=== PATIENT | male | born 1970 | race Caucasian/White ===

== ENCOUNTER 2021-09-22 11:03 | Inpatient (IN) | payer OTHER, SELFPAY ==
[2021-09-22] VITALS (10 sets, daily range): BP systolic 107–139; BP diastolic 60–87; PULSE 57–90; RESP 15–20; TEMP 36.4–36.7; O2SAT 97–100; BMI 23.1; BMI 23.3
--- NOTE | 2021-09-22 11:08 | XR_ITS ---
PROCEDURE: XR CHEST 2V CLINICAL HISTORY: cough/congestion COMPARISON: No exams were available for comparison FINDINGS: The cardiomediastinal silhouette and pulmonary vascularity are within normal limits. Faint nodular opacity overlies the right lower lobe and may be due to a nipple shadow. No lobar consolidation or collapse. Degenerative changes thoracic spine IMPRESSION: No acute findings. Dictated by: Corby Muñoz MD 09/22/2021 14:41 Corby Muñoz MD in [place] 09/22/2021 14:41
--- NOTE | 2021-09-22 11:12 | HMH.EDGENADL ---
ED Disposition Clinical Impression: Pyelonephritis, Renal abscess, Renal cyst Disposition: Admitted as Observation Condition on Discharge: Fair - Critical Care Critical Care Time: No Attestation: On 09/22/21, the high probability of a clinically significant, sudden or life threatening deterioration of the following system(s) required my full and direct attention, intervention and personal management. The time I documented below is in addition to time spent performing reported procedures but includes the following listed in this critical care notation. Medical Decision Making - Marvin Inquiry Pt receiving controlled substance: No Vital Signs: 09/22/21 11:09 09/22/21 11:30 09/22/21 12:15 Temperature 97.6 F Temperature Source Oral Pulse Rate 62 60 Pulse Rate [Left Radial] 76 Respiratory Rate 16 20 Blood Pressure 124/79 132/81 Blood Pressure [Right Arm] 115/76 Blood Pressure Mean 90 95 Blood Pressure Mean [Right Arm] 89 Blood Pressure Source [Right Arm] Automatic Cuff Blood Pressure Position [Right Arm] Sitting 02 Sat by Pulse Oximetry 100 99 100 Oxygen Delivery Method Room Air 09/22/21 12:32 09/22/21 13:02 09/22/21 13:31 Temperature Temperature Source Pulse Rate 57 L 58 L 66 Pulse Rate [Left Radial] Respiratory Rate 20 18 20 Blood Pressure 107/60 L 139/81 136/79 Blood Pressure [Right Arm] Blood Pressure Mean 82 97 101 Blood Pressure Mean [Right Arm] Blood Pressure Source [Right Arm] Blood Pressure Position [Right Arm] 02 Sat by Pulse Oximetry 99 99 99 Oxygen Delivery Method 09/22/21 14:02 Temperature Temperature Source Pulse Rate 61 Pulse Rate [Left Radial] Respiratory Rate 18 Blood Pressure 123/81 Blood Pressure [Right Arm] Blood Pressure Mean 99 Blood Pressure Mean [Right Arm] Blood Pressure Source [Right Arm] Blood Pressure Position [Right Arm] 02 Sat by Pulse Oximetry 97 Oxygen Delivery Method - Lab Data Lab Results 09/22/21 11:04: WBC 12.6 H, RBC 5.74, Hgb 17.2, Hct 53.8 H, MCV 93.6, MCH 30.0, MCHC 32.0, RDW 13.3, Plt Count 246, MPV 7.8, Neut % (Auto) 87.7 H, Lymph % (Auto) 5.3 L, [place] % (Auto) 6.5, Eos % (Auto) 0.1, Baso % (Auto) 0.3, Neut # (Auto) 11.1 H, Lymph # (Auto) 0.7, [place] # (Auto) 0.8, Eos # (Auto) 0.0, Baso # (Auto) 0.0, Total Counted 100, Neutrophils % (Manual) 79 H, Band Neutrophils % 4.0, Lymphocytes % (Manual) 6 L, Monocytes % (Manual) 9, Eosinophils % (Manual) 1, Metamyelocytes % 1.0, Platelet Estimate Normal, RBC Morphology Normal 09/22/21 11:04: Sodium 135 L, Potassium 4.1, Chloride 93 L, Carbon Dioxide 33 H, Anion Gap 13.1, BUN 11, Creatinine 0.90, Estimated Creat Clear 98, Estimated GFR 89, Est GFR ( Amer) 108, Glucose 155 H, Calcium 9.0, Total Bilirubin 0.7, AST 42, ALT 36, Alkaline Phosphatase 98, Total Protein 7.5, Albumin 4.1, Globulin 3.4 H, Albumin/Globulin Ratio 1.2 09/22/21 11:04: SARS-CoV-2 (PCR) Not detected, Influenza A Untype (PCR) Not detected, Influenza Type B (PCR) Not detected 09/22/21 11:04: Lipase 21 L 09/22/21 12:32: Urine Color Yellow, Urine Appearance Cloudy, Urine pH 6.5, Ur Specific [place] 1.010, Urine Protein 2+, Urine Glucose (UA) Negative, Urine Ketones Trace, Urine Blood 2+, Urine Nitrate Positive, Urine Bilirubin Negative, Urine Urobilinogen 1.0, Ur Leukocyte Esterase 2+ A, Urine RBC 20-50, Urine WBC 10-20, Ur Squamous Epith Cells None, Urine Bacteria 2+ 09/22/21 13:09: Lactate 1.1 Result diagrams: 09/22/21 11:04 09/22/21 11:04 Orders (Tests/Meds): ED MEDICATIONS Generic Name Dose Route Start Last Admin Trade Name Freq PRN Reason Stop Dose Admin Levofloxacin/Dextrose 750 mg in 150 mls @ 100 mls/hr 09/22/21 13:00 09/22/21 12:50 Levofloxacin 750mg/150ml Premix IV 10/06/21 12:59 100 mls/hr Q24H SCOTT Administration Discontinued Medications Generic Name Dose Route Start Last Admin Trade Name Freq PRN Reason Stop Dose Admin Sodium Chloride 1,000 mls @ 999 mls/h
[2021-09-22 11:14] LABS: Coronavirus 19, PCR Not Detected (NotDetected); Influenza A, PCR Not Detected (NotDetected); Influenza B, PCR Not Detected (NotDetected)
[2021-09-22 11:16] LABS: Basophils % 0.3 % (0.1-2.0); Chloride 93 mmol/L (98-107); Eosinophils % 0.1 % (0.1-12.0); Hematocrit 53.8 % (42.0-52.0); Hemoglobin 17.2 g/dL (14.1-18.0); Lymphocytes # 0.7 K/mm3 (0.7-4.5); Lymphocytes % 5.3 % (10-50); Mean Corpuscular Volume 93.6 fl (80-94); Mean Platelet Volume 7.8 fl (7.4-10.4); Monocytes # 0.8 K/mm3 (0.1-1.0); Monocytes % 6.5 % (1.7-9.3); Neutrophils # 11.1 K/mm3 (1.8-7.8); Neutrophils % 87.7 % (37.0-80.0); Platelet Count 246 K/mm3 (142-424); Red Blood Count 5.74 M/mm3 (4.60-6.20); Red Cell Distribution Width 13.3 % (11.5-17.5); White Blood Count 12.6 K/mm3 (4.8-10.8)
[2021-09-22 11:17] LABS: Potassium 4.1 mmoL/L (3.5-5.1); Sodium 135 mmol/L (136-145)
--- NOTE | 2021-09-22 11:17 | CT_ITS ---
PROCEDURE: CT ABDOMEN PELVIS W CON CLINICAL INDICATION: abdo pain COMPARISON: No exams were available for comparison TECHNIQUE: IV Contrast: 75ML Isovue 370 Oral Contrast None Axial images obtained with sagittal and coronal reformats. All CT scans at the facility use one or more dose reduction, viz: automated exposure control, ma/kV adjustment per patient size (including targeted exams where dose is matched to indication, i.e. head), or iterative reconstruction technique. FINDINGS: LOWER THORAX: Faint nodular opacity in the lingula 4 mm. Calcified granuloma right lung base posteriorly ABDOMEN & PELVIS: Small hiatal hernia. The liver, spleen, adrenal glands, and pancreas have an unremarkable appearance. No radiopaque gallstones. No renal or ureteral calculi. There are areas of decreased parenchymal enhancement involving both kidneys bilaterally. These are peripheral in nature suggesting bilateral pyelonephritis. Along the upper pole of the left kidney there is a complex hypodense lesion measuring 1.9 cm. The density centrally is greater than water measuring approximately 20 Hounsfield units. Along the peripheral aspect of this lesion there is suggestion of small capsular component. Renal abscess is a consideration. Complex cyst would also be considered. There is some minimal stranding of the perinephric renal fat on both sides. In the lower pole of the right kidney there is a 3 cm cyst. No intestinal obstruction or free air. There are few scattered small retroperitoneal lymph nodes. No evidence of appendicitis or diverticulitis. There is concentric thickening of the urinary bladder wall. No pelvic fluid collections. No acute bony findings. IMPRESSION: Findings are suspicious for bilateral pyelonephritis with left upper pole renal abscess. The complex lesion in the upper pole of the left kidney could also represent complex cyst or even a neoplastic process. Follow-up suggested Dictated by: Corby Muñoz MD 09/22/2021 12:31 Corby Muñoz MD in [place] 09/22/2021 12:31
[2021-09-22 11:19] LABS: Alanine Aminotransferase 36 U/L (12-78); Aspartate Amino Transferase 42 U/L (17-59); Blood Urea Nitrogen 11 mg/dl (9-20); Creatinine Clearance Estimated 98 mL/min (50-200); Estimated Glomerular Filt Rate 89 ml/min (>60); GFR (African American) 108 ML/MIN (>60)
[2021-09-22 11:20] LABS: Albumin Level 4.1 g/dl (3.5-5.0); Albumin/Globulin Ratio 1.2 (1.1-1.8); Alkaline Phosphatase 98 U/L (38-126); Anion Gap 13.1 mEq/L (5-15); Bilirubin,Total 0.7 mg/dl (0.2-1.3); Carbon Dioxide 33 mmol/L (22.0-30.0); Globulin 3.4 g/dL (1.3-3.2); Glucose 155 mg/dl (74-100); MANUAL DIFFERENTIAL MANUAL DIFFERENTIAL (MANUAL DIFF); Total Protein,Serum 7.5 g/dl (6.3-8.2)
[2021-09-22 11:44] LABS: Eosinophils % 1 % (0-3); Lymphocytes % 6 % (10-50); Monocytes % 9 % (2-9); Neutrophils % 79 % (42-76); Platelet Estimate Normal; RBC Morphology Normal; Total Cells Counted 100
[2021-09-22 12:00] LABS: Lipase 21 U/L (23-300)
[2021-09-22 12:36] LABS: Microscopic, Urine URINE MICROSCOPIC (MICROSCOPIC)
[2021-09-22 12:40] LABS: Appearance,Urine CLOUDY (Clear); Bilirubin,Urine Negative (Negative); Blood, Urine 2+ (Negative); Color,Urine YELLOW (Yellow); Glucose,Urine (UA) Negative (Negative); Ketones,Urine TRACE (Negative); Leukocyte Esterase,Urine 2+ (Negative); Nitrate,Urine POSITIVE (Negative); PH,Urine 6.5 (5.0-8.5); Protein,Urine 2+ (Negative)
[2021-09-22 12:56] LABS: Bacteria,Urine 2+ /lpf; RBC,Urine 20-50 #/hpf (0-3)
[2021-09-22 13:38] LABS: Lactic Acid 1.1 mmol/L (0.7-2.1)
--- NOTE | 2021-09-22 14:54 | PC.NURSE ---
Dr Schulz speaking with Dr Rondon
--- NOTE | 2021-09-22 14:55 | PC.NURSE ---
SERGEY MCCLURE speaking with Dr. Rondon
--- NOTE | 2021-09-22 14:56 | US_ITS ---
PROCEDURE: US KIDNEY CLINICAL INDICATION: possible left renal abscess COMPARISON: CT CT ABDOMEN PELVIS W CON from 09/22/2021 FINDINGS: The right kidney is [id number]. 2.7 cm cyst along the lower pole of the right kidney. The left kidney is [id number]. Comparison is made to the recent CT scan. In the upper pole there is a 2 x 1.8 cm area of heterogeneous echogenicity. This corresponds to the CT abnormality. No perinephric fluid apparent. No hydronephrosis. IMPRESSION: Heterogeneous echogenicity in the upper pole of the left kidney difficult to visualize suggesting a small renal abscess versus lobar nephronia. Suggest convalescent follow-up enhanced CT scan once this has been treated to assure resolution. Dictated by: Corby Muñoz MD 09/22/2021 15:37 Corby Muñoz MD in [place] 09/22/2021 15:37
--- NOTE | 2021-09-22 16:44 | PC.NURSE ---
called report to pablo dugan
--- NOTE | 2021-09-22 20:52 | P.CONPHA_ITS ---
[facility] Pharmacy VTE Monitoring - Patient Demographics Admission date: 09/22/21 Report Date: 09/22/21 Time: 20:52 Allergies/Adverse Reactions: Patient Allergies hydrocodone [HYDROCODONE] Allergy (Intermediate, Verified 09/22/21 11:25) I-ITCHING Penicillins [PENICILLINS] Allergy (Intermediate, Verified 09/22/21 11:25) I-HIVES Sulfa (Sulfonamide Antibiotics) [SULFA (SULFONAMIDE ANTIBIOTICS)] Allergy (Mild, Verified 09/22/21 11:25) NA-NAUSEA/VOMITING Height: 1.75 m Weight: 71.696 kg Patient Problems: Current Active Problems Pyelonephritis (Acute) Renal abscess (Acute) Renal cyst (Acute) - VTE Risk Labs: VTE Related Lab Results Hgb 17.2 g/dL (14.1-18.0) 09/22/21 11:04 Hct 53.8 % (42.0-52.0) H 09/22/21 11:04 Plt Count 246 K/mm3 (142-424) 09/22/21 11:04 BUN 11 mg/dl (9-20) 09/22/21 11:04 Creatinine 0.90 mg/dl (0.66-1.25) 09/22/21 11:04 Estimated Creat Clear 98 mL/min (50-200) 09/22/21 11:04 Clinical Trial Participant: No - Prophylaxis VTE Prophylaxis Ordered?: Yes Types of VTE Prophylaxis: TEDS Knee High
--- NOTE | 2021-09-23 03:49 | PC.NURSE ---
A&OX4. TOLERATING RA WELL. PT HAS HAD NO C/O THUS FAR. SLEEPING MAJORITY OF SHIFT. INDEPENDENT IN ROOM. VSS WILL CONTINUE TO MONITOR.
[2021-09-23 04:00] VITALS: BP 107/67; PULSE 79; RESP 18; TEMP 36.8; O2SAT 96
[2021-09-23 04:43] VITALS: BMI 22.9
[2021-09-23 07:57] VITALS: BP 105/75; PULSE 77; RESP 18; TEMP 36.8; O2SAT 97
--- NOTE | 2021-09-23 08:57 | HMH.HP ---
*Admission Date: 09/22/21 *Chief complaint: not feeling well *History of present illness: this patient presented to the ed- in by ambulance. States he has been sick since Monday. He has periumbilical abdominal pain that feels like somebody is twisting my guts , initially did not have a bowel movement until Monday, then took a laxative. Since then he has had watery diarrhea, 2 small episodes today without blood. Feels hot and cold, but no documented fever. Minimal cough. Says he has been drinking a lot, hydrating himself, and has increased urinary output, but urine is dark. Low back pain. No known exposures to any illnesses including COVID-19. He is not vaccinated against COVID-19. He is a smoker. He drinks 4 beers a day. No chronic medical conditions. No history of IV drug abuse. States he has a history of urinary tract infection 7 or 8 years ago treated with outpatient antibiotics.pt was found to have pyelo on ct with abd urine and was admitted for ivf and abx at this time [facility] History I have reviewed the patient's past medical history: Yes *Have you ever received a pneumonia vaccine?: No *Have you received a flu vaccine this season?: No - *Social History Smoking Status: Current every day smoker # Packs/Day (cigarettes): 1 Alcohol Intake: current Alcohol Intake Frequency:: 3 or more drinks per day Last Used Substance: unknown *Occupational Status:: employed *Travel in the last 8 weeks: None Family Hx:: No significant family history Review of Systems - Review of Systems Review of systems:: pertinent systems reviewed and negative unless documented below - Constitutional Reports fatigue, Denies fever(s) - Eyes Denies change in vision - ENT Denies sore throat - *Cardiovascular Denies chest pain at rest - *Respiratory Denies cough - *Gastrointestinal Reports abdominal pain, Reports nausea - *Genitourinary Denies blood in urine - *Musculoskeletal Denies joint pain - Integumentary/Breasts Denies rash - *Neurologic Denies dizziness, Denies seizure-like activity - Psychiatric Denies anxiety Meds Home Medications Medication Instructions Recorded Confirmed Type No Known Home Medications 09/22/21 09/22/21 History Allergies Allergy/AdvReac Type Severity Reaction Status Date / Time hydrocodone [HYDROCODONE] Allergy Intermediate I-ITCHING Verified 09/22/21 11:25 Penicillins [PENICILLINS] Allergy Intermediate I-HIVES Verified 09/22/21 11:25 Sulfa (Sulfonamide Allergy Mild NA-NAUSEA/V Verified 09/22/21 11:25 Antibiotics) OMITING [SULFA (SULFONAMIDE ANTIBIOTICS)] Exam Vital signs and Labs for Last 24 Hours: Temp Pulse Resp BP Pulse Ox 98.2 F 77 18 105/75 L 97 09/23/21 07:57 09/23/21 07:57 09/23/21 07:57 09/23/21 07:57 09/23/21 07:57 Laboratory Results - last 24 hr 09/22/21 11:04: WBC 12.6 H, RBC 5.74, Hgb 17.2, Hct 53.8 H, MCV 93.6, MCH 30.0, MCHC 32.0, RDW 13.3, Plt Count 246, MPV 7.8, Neut % (Auto) 87.7 H, Lymph % (Auto) 5.3 L, [place] % (Auto) 6.5, Eos % (Auto) 0.1, Baso % (Auto) 0.3, Neut # (Auto) 11.1 H, Lymph # (Auto) 0.7, [place] # (Auto) 0.8, Eos # (Auto) 0.0, Baso # (Auto) 0.0, Total Counted 100, Neutrophils % (Manual) 79 H, Band Neutrophils % 4.0, Lymphocytes % (Manual) 6 L, Monocytes % (Manual) 9, Eosinophils % (Manual) 1, Metamyelocytes % 1.0, Platelet Estimate Normal, RBC Morphology Normal 09/22/21 11:04: Sodium 135 L, Potassium 4.1, Chloride 93 L, Carbon Dioxide 33 H, Anion Gap 13.1, BUN 11, Creatinine 0.90, Estimated Creat Clear 98, Estimated GFR 89, Est GFR ( Amer) 108, Glucose 155 H, Calcium 9.0, Total Bilirubin 0.7, AST 42, ALT 36, Alkaline Phosphatase 98, Total Protein 7.5, Albumin 4.1, Globulin 3.4 H, Albumin/Globulin Ratio 1.2 09/22/21 11:04: SARS-CoV-2 (PCR) Not detected, Influenza A Untype (PCR) Not detected, Influenza Type B (PCR) Not detected 09/22/21 11:04: Lipase 21 L 09/22/21 12:32: Urine Color Yellow, Urine Appearance Cloudy, Ur
[2021-09-23 15:15] VITALS: BP 123/76; PULSE 81; RESP 17; TEMP 36.7; O2SAT 99
--- NOTE | 2021-09-23 15:50 | PC.NURSE ---
No acute changes. VSS. Did send stool sample to lab. Stool soft and x 1.
[2021-09-23 16:28] LABS: Adenovirus F 40/41, stool Not Detected (NotDetected); Astrovirus Not Detected (NotDetected); Campylobacter Not Detected (NotDetected); Clostridium Difficile A/B, PCR Not Detected (NotDetected); Cryptosporidium Not Detected (NotDetected); Cyclospora Cayetanesis Not Detected (NotDetected); Entamoeba histolytica Not Detected (NotDetected); Enteroaggregative E coli Not Detected (NotDetected); Enteropathogenic E coli Not Detected (NotDetected); Enterotoxigenic E coli Not Detected (NotDetected); Giardia lamblia Not Detected (NotDetected); Norovirus Not Detected (NotDetected); Plesimonas Shigalloides, PCR Not Detected (NotDetected); Rotavirus A Not Detected (NotDetected); Salmonella, PCR Not Detected (NotDetected); Sapovirus Not Detected (NotDetected); Shiga-like toxin E coli Not Detected (NotDetected); Shigella Enterovasive E coli Not Detected (NotDetected); Vibrio Cholerae Not Detected (NotDetected); Vibrio, PCR Not Detected (NotDetected); Yersinia Entercolitica, PCR Not Detected (NotDetected)
[2021-09-23 20:00] VITALS: BP 128/85; PULSE 79; RESP 20; TEMP 37.2; O2SAT 98
--- NOTE | 2021-09-24 03:30 | PC.NURSE ---
A&OX4. TOLERATING RA WELL. PT HAS SLEPT MAJORITY OF SHIFT. HAS HAD NO C/O. VSS WILL CONTINUE TO MONITOR.
[2021-09-24 04:00] VITALS: BP 112/63; PULSE 68; RESP 18; TEMP 37.2; O2SAT 100
[2021-09-24 08:00] VITALS: BP 101/54; PULSE 74; RESP 16; TEMP 37.1; O2SAT 98
[2021-09-24 08:33] LABS: Basophils % 0.5 % (0.1-2.0); Eosinophils # 0.1 K/mm3 (0.0-0.4); Eosinophils % 1.8 % (0.1-12.0); Hematocrit 42.8 % (42.0-52.0); Hemoglobin 13.9 g/dL (14.1-18.0); Lymphocytes % 12.7 % (10-50); Mean Corpuscular HGB Conc 32.4 g/dL (31.8-35.4); Mean Corpuscular Hemoglobin 29.5 pg (27.0-31.2); Mean Platelet Volume 7.5 fl (7.4-10.4); Monocytes # 0.6 K/mm3 (0.1-1.0); Monocytes % 8.1 % (1.7-9.3); Platelet Count 282 K/mm3 (142-424); Red Cell Distribution Width 13.7 % (11.5-17.5); White Blood Count 7.8 K/mm3 (4.8-10.8)
[2021-09-24 08:44] LABS: Chloride 105 mmol/L (98-107); Potassium 3.8 mmoL/L (3.5-5.1); Sodium 138 mmol/L (136-145)
[2021-09-24 08:47] LABS: Anion Gap 11.8 mEq/L (5-15); Blood Urea Nitrogen 8 mg/dl (9-20); Calcium 8.5 mg/dl (8.4-10.2); Carbon Dioxide 25 mmol/L (22.0-30.0); Creatinine Clearance Estimated 97 mL/min (50-200); Estimated Glomerular Filt Rate 89 ml/min (>60); GFR (African American) 108 ML/MIN (>60); Glucose 158 mg/dl (74-100)
--- NOTE | 2021-09-24 09:00 | HMH.DCSUM ---
General - General Admission date:: 09/22/21 Discharge date: 09/24/21 HPI HPI: this patient presented to the ed- in by ambulance. States he has been sick since Monday. He has periumbilical abdominal pain that feels like somebody is twisting my guts , initially did not have a bowel movement until Monday, then took a laxative. Since then he has had watery diarrhea, 2 small episodes today without blood. Feels hot and cold, but no documented fever. Minimal cough. Says he has been drinking a lot, hydrating himself, and has increased urinary output, but urine is dark. Low back pain. No known exposures to any illnesses including COVID-19. He is not vaccinated against COVID-19. He is a smoker. He drinks 4 beers a day. No chronic medical conditions. No history of IV drug abuse. States he has a history of urinary tract infection 7 or 8 years ago treated with outpatient antibiotics.pt was found to have pyelo on ct with abd urine and was admitted for ivf and abx at this time Hospital Course Hospital Course: pt has did well with ivf and abx with gram neg organism in urine - pending final culture - pt has stable labs and tolerating diet and activity and will d/c today on levofloxin - and follow urine culture - Objective Vital signs: Temp Pulse Resp BP Pulse Ox 98.9 F 68 18 112/63 100 09/24/21 04:00 09/24/21 04:00 09/24/21 04:00 09/24/21 04:00 09/24/21 04:00 no acute distress - *Routine HEENT Exam Head: Present: normocephalic Eye: Present: EOMI, PERRL ENT: Present: mucous membranes moist - *Routine Neck Exam Present: supple - *Routine Respiratory Exam Present: CTA bilaterally - *Routine Cardiovascular Exam Present: RRR. Absent: murmur - *Routine Abdominal Exam Present: soft - *Routine Extremities Exam Absent: calf tenderness - *Routine Neurological Exam Present: alert, CN II-XII intact - Routine Psychiatric Exam Present: normal affect Results Labs on day of discharge: Labs from last 24 hours 09/24/21 09/24/21 09/23/21 08:22 08:22 15:30 WBC 7.8 D RBC 4.70 Hgb 13.9 L Hct 42.8 MCV 91.0 MCH 29.5 MCHC 32.4 RDW 13.7 Plt Count 282 MPV 7.5 Neut % (Auto) 77.0 Lymph % (Auto) 12.7 [place] % (Auto) 8.1 Eos % (Auto) 1.8 Baso % (Auto) 0.5 Neut # (Auto) 6.0 Lymph # (Auto) 1.0 [place] # (Auto) 0.6 Eos # (Auto) 0.1 Baso # (Auto) 0.0 Sodium 138 Potassium 3.8 Chloride 105 Carbon Dioxide 25 Anion Gap 11.8 BUN 8 L D Creatinine 0.90 Estimated Creat Clear 97 Estimated GFR 89 Est GFR ( Amer) 108 Glucose 158 H Calcium 8.5 Urine Color Urine Appearance Urine pH Ur Specific [place] Urine Protein Urine Glucose (UA) Urine Ketones Urine Blood Urine Nitrate Urine Bilirubin Urine Urobilinogen Ur Leukocyte Esterase Urine RBC Urine WBC Ur Squamous Epith Cells Urine Bacteria Stl Aeromonas (PCR) Not detected Stl C. cayetanensis PCR Not detected Stool Rotavirus (PCR) Not detected Stl Adenov F 40/41 PCR Not detected Stool Astrovirus (PCR) Not detected Stool Campylobacter PCR Not detected Stl C.difficile Tox PCR Not detected Stool Cryptosporidium PCR Not detected Stl E.coli Shiga Tox PCR Not detected Stool E coli O157 PCR Not detected Stl Enterotoxigenic E PCR Not detected Stool EPEC (PCR) Not detected Stool EAEC (PCR) Not detected Stl E. histolytica PCR Not detected Stool Giardia Lamblia PCR Not detected Stool Salmonella PCR Not detected Stool Sapovirus (PCR) Not detected Stl P. shigelloides PCR Not detected Stl Shigella/EIEC PCR Not detected St Y.enterocolitica PCR Not detected Stool Vibrio (PCR) Not detected Stl Vibrio cholerae PCR Not detected Stl Norovirus GI/GII PCR Not detected 09/22/21 12:32 WBC RBC Hgb Hct MCV MCH MCHC RDW Plt Co
[2021-09-24 23:22] LABS: Neisseria gonorrhoeae, NAA Negative (Negative)
== END 2021-09-24 13:21 | disposition home or self-care (01) | DRG 690 ==
LOC: ER 14:57 → 2ND 09-23 07:28
PROVIDERS: Admitting Provider Emergency Medicine; Emergency Provider Emergency Medicine; PCP Emergency Medicine; Visit Provider Emergency Medicine
DX: N10 Acute pyelonephritis (principal); N15.1 Renal and perinephric abscess; Z20.822 Contact with and (suspected) exposure to COVID-19; F17.210 Nicotine dependence, cigarettes, uncomplicated; B96.20 Unspecified Escherichia coli [E. coli] as the cause of diseases classified elsewhere; N28.1 Cyst of kidney, acquired
CPT/HCPCS: 36415; 71046; 74177; 76770; 80048; 80053; 81001; 83605; 83690; 85007; 85025; 87040; 87077; 87086; 87088; 87186; 87491; 87506; 87591; 96365; 96367; 96375; 99284; C9803; J1956; J2405; Q9967; U0003; U0005

== ENCOUNTER 2023-05-04 08:38 | Emergency (ER) | payer OTHER, SELFPAY ==
[2023-05-04 08:40] VITALS: BP 118/85; PULSE 86; RESP 16; TEMP 36.6; O2SAT 100; BMI 23.1
[2023-05-04 09:16] VITALS: BP 114/80; PULSE 85; O2SAT 99
--- NOTE | 2023-05-04 09:17 | PC.NURSE ---
Rounded on patient; no needs at this time, friend at BS. Call light within reach
--- NOTE | 2023-05-04 09:25 | PC.NURSE ---
SERGEY MCCLURE at
--- NOTE | 2023-05-04 09:35 | XR_ITS ---
FINAL REPORT CLINICAL HISTORY: concern for infection FINDINGS: Left knee Three views were obtained. There is no acute fracture or dislocation. The joint spaces appear normal. There is prepatellar soft tissue swelling. IMPRESSION: Prepatellar soft tissue swelling. Reviewed, Interpreted and Dictated by Ari Mukherjee III, MD Transcribed by Rebekah Mcgarry Authenticated and [facility]
--- NOTE | 2023-05-04 09:37 | HMH.EDGENADL ---
Discharge Plan Disposition Patient Disposition: Home, Self-Care Prescriptions Prescriptions: No Action levofloxacin 500 MG tablet 500 mg PO DAILY Qty: 7 0RF Referrals Follow up/Referrals: Bernardino Rondon MD [Primary Care Provider] - See instructions Activity Restrictions/Add. Instructions Additional Instructions/Restrictions: Admission to the hospital was recommended and you declined wishing to come back this evening after you tended some issues at home. Please return soon as possible and be aware that if he did not return for admission for IV antibiotics that this could get significantly worse and could be limb or life-threatening. Clinical Impressions Clinical Impression: Cellulitis of left leg Discharge ED Provider: Shannan Casas General Adult HPI General Chief complaint: Extremity Injury, Lower Stated complaint: [email or web address]@home 05/01 LT knee pain Time Seen by Provider: 05/04/23 09:23 Mode of Arrival: Ambulatory Source of Information: Patient Limitations: No Limitations Description of Symptoms (Recalled from ER Triage Doc. by RN): Presents to ED with complaints of LLE pain that started after he fell on May 01. Patient reports warmth and reddness to the area with noteable streaking up posterior thigh. Denies blood thinner. Denies fever. Further reports inable to stand on leg without severe pain. History of Present Illness HPI narrative: Patient is a 52-year-old male presenting today with left lower extremity pain and erythema. States that he fell a few days ago but no significant injury at that time no soft tissue or skin injury that he is aware of but since the fall he is developed progressive worsening erythema over the dorsal and medial aspect of the left lower extremity extending up beyond past the knee into the medial aspect of his left thigh. No fevers or chills that he is aware of. His pain is extremely worsened when he has extension and is most comfortable in a fixed flexed position. Related Data Previous Rx's Medication Instructions Recorded levofloxacin 500 mg tablet 500 mg PO DAILY Infection #7 tabs 09/24/21 Allergies Allergy/AdvReac Type Severity Reaction Status Date / Time hydrocodone [HYDROCODONE] Allergy Intermediate I-ITCHING Verified 09/22/21 11:25 Penicillins [PENICILLINS] Allergy Intermediate I-HIVES Verified 09/22/21 11:25 Sulfa (Sulfonamide Allergy Mild NA-NAUSEA/V Verified 09/22/21 11:25 Antibiotics) OMITING [SULFA (SULFONAMIDE ANTIBIOTICS)] [facility] Disclaimer: The information contained in this section may have been updated after the patient was seen, as this information can be updated by other users. Social History Smoking Status: Current every day smoker alcohol intake: current current occupational status: employed Travel in the last 8 weeks: None ROS Obtained: Yes All systems reviewed & no additional complaints except as documented Physical Exam General General appearance: alert Respiratory Respiratory exam: Present normal lung sounds bilaterally; Absent respiratory distress Cardiovascular Cardiovascular exam: Present regular rate; Absent tachycardia Extremities Exam Extremities exam: Present other (Left lower extremity erythema extending along the dorsal aspect of the entire left lower extremity beyond the anterior knee into the medial thigh this is marked with date and time patient also has significant pain with any extension of the knee there is a small joint effusion clinically on exam and ) Neurological Exam Neurological exam: Present alert and oriented X3 Medical Decision Making Marvin Inquiry Pt receiving controlled substance: No Vital Signs: 05/04/23 08:40 05/04/23 09:16 05/04/23 10:15 Temperature 97.8 F Temperature Source Oral Pulse Rate 85 78 Pulse Rate [Right] 86 Respiratory Rate 16 Blood Pressure 114/80 Blood Pressure [Right Arm] 118/85 Blood Pressure Mean [Right Arm] 96 Blood Pressure Source [Right
[2023-05-04 09:48] LABS: Basophils % 0.1 % (0.1-2.0); Eosinophils # 0.4 K/mm3 (0.0-0.4); Eosinophils % 2.5 % (0.1-12.0); Hemoglobin 14.6 g/dL (14.1-18.0); Lymphocytes # 0.8 K/mm3 (0.7-4.5); Lymphocytes % 4.9 % (10-50); Mean Corpuscular HGB Conc 31.7 g/dL (31.8-35.4); Mean Corpuscular Hemoglobin 29.4 pg (27.0-31.2); Mean Platelet Volume 7.8 fl (7.4-10.4); Monocytes # 0.8 K/mm3 (0.1-1.0); Monocytes % 5.4 % (1.7-9.3); Neutrophils # 13.6 K/mm3 (1.8-7.8); Neutrophils % 87.1 % (37.0-80.0); Platelet Count 261 K/mm3 (142-424); Red Blood Count 4.95 M/mm3 (4.60-6.20); Red Cell Distribution Width 13.2 % (11.5-17.5); White Blood Count 15.6 K/mm3 (4.8-10.8)
[2023-05-04 09:50] LABS: MANUAL DIFFERENTIAL MANUAL DIFFERENTIAL (MANUAL DIFF)
[2023-05-04 09:53] LABS: Chloride 97 mmol/L (98-107)
[2023-05-04 09:54] LABS: Potassium 4.8 mmoL/L (3.5-5.1); Sodium 134 mmol/L (136-145)
[2023-05-04 09:56] LABS: Alanine Aminotransferase 27 U/L (12-78); Alkaline Phosphatase 63 U/L (38-126); Aspartate Amino Transferase 42 U/L (17-59); Blood Urea Nitrogen 7 mg/dl (9-20); Creatinine Clearance Estimated 119 mL/min (50-200); Estimated Glomerular Filt Rate 118 ml/min (>60); GFR (African American) 143 ML/MIN (>60)
[2023-05-04 09:57] LABS: Albumin Level 3.9 g/dl (3.5-5.0); Albumin/Globulin Ratio 1.1 (1.1-1.8); Anion Gap 12.8 mEq/L (5-15); Calcium 8.8 mg/dl (8.4-10.2); Carbon Dioxide 29 mmol/L (22.0-30.0); Globulin 3.4 g/dL (1.3-3.2); Glucose 108 mg/dl (74-100); Total Protein,Serum 7.3 g/dl (6.3-8.2)
[2023-05-04 10:01] LABS: Lymphocytes % 4 % (10-50); Monocytes % 4 % (2-9); Neutrophils % 92 % (42-76); Platelet Estimate Normal; RBC Morphology Normal; Total Cells Counted 100
[2023-05-04 10:05] LABS: C-Reactive Protein 147.1 mg/L (0-4)
[2023-05-04 10:15] VITALS: PULSE 78; O2SAT 100
--- NOTE | 2023-05-04 10:15 | PC.NURSE ---
Rounded on patient; call malone within reach. Provided patient a drink.
--- NOTE | 2023-05-04 10:22 | PC.NURSE ---
contacted rad to check on status of xray results-states in locked status
[2023-05-04 10:30] VITALS: PULSE 72; O2SAT 100
[2023-05-04 10:40] LABS: Lactic Acid 0.9 mmol/L (0.7-2.1)
--- NOTE | 2023-05-04 11:02 | PC.NURSE ---
Rounded on patient; nothing needed at this time. Call malone within reach of patient
[2023-05-04 11:20] LABS: Erythrocyte Sedimentation Rate 49 mm/hr (0-20)
--- NOTE | 2023-05-04 11:52 | PC.NURSE ---
rounded on patient, no needs at this time
[2023-05-04 12:00] VITALS: PULSE 75; O2SAT 98
[2023-05-04 13:13] VITALS: BP 105/67; PULSE 81; RESP 16; TEMP 36.6; O2SAT 100
== END 2023-05-04 13:20 | disposition home or self-care (01) ==
PROVIDERS: Emergency Provider Student in an Organized Health Care Education/Training Program; PCP Emergency Medicine
DX: L03.116 Cellulitis of left lower limb (principal); M79.605 Pain in left leg; F17.200 Nicotine dependence, unspecified, uncomplicated; W19.XXXA Unspecified fall, initial encounter
CPT/HCPCS: 73562; 80053; 83605; 85007; 85025; 85651; 86140; 87040; 96361; 96374; 99285

== ENCOUNTER 2023-05-04 17:59 | Observation (INO) | payer OTHER, SELFPAY ==
[2023-05-04 18:01] VITALS: BP 112/78; PULSE 95; RESP 16; TEMP 36.8; O2SAT 97; BMI 23.1
[2023-05-04 18:11] VITALS: BP 112/78; PULSE 97; O2SAT 96
--- NOTE | 2023-05-04 18:11 | PC.NURSE ---
SERGEY MCCLURE speaking with Dr. Li
[2023-05-04 18:14] VITALS: BMI 23.1
--- NOTE | 2023-05-04 18:14 | HMH.EDGENADL ---
Discharge Plan Disposition Patient Disposition: Admitted Prescriptions Prescriptions: No Action levofloxacin 500 MG tablet 500 mg PO DAILY Qty: 7 0RF Referrals Follow up/Referrals: Bernardino Rondon MD [Primary Care Provider] - See instructions Clinical Impressions Clinical Impression: Cellulitis of left leg Discharge ED Provider: Shannan Casas General Adult HPI General Stated complaint: lt leg swelling and red Time Seen by Provider: 05/04/23 18:09 History of Present Illness HPI narrative: Patient is a 52-year-old male presenting for admission with cellulitis. I saw him earlier today in the emergency department and offered him admission but he had to go home to deal with some issues at home and promised to return and he is now returning to be admitted to hospital. His symptoms and his cellulitis according to him have been unchanged. Please see previous note for further details. Related Data Previous Rx's Medication Instructions Recorded levofloxacin 500 mg tablet 500 mg PO DAILY Infection #7 tabs 09/24/21 Allergies Allergy/AdvReac Type Severity Reaction Status Date / Time hydrocodone [HYDROCODONE] Allergy Intermediate I-ITCHING Verified 09/22/21 11:25 Penicillins [PENICILLINS] Allergy Intermediate I-HIVES Verified 09/22/21 11:25 Sulfa (Sulfonamide Allergy Mild NA-NAUSEA/V Verified 09/22/21 11:25 Antibiotics) OMITING [SULFA (SULFONAMIDE ANTIBIOTICS)] [facility] Disclaimer: The information contained in this section may have been updated after the patient was seen, as this information can be updated by other users. Social History Smoking Status: Current every day smoker alcohol intake: current current occupational status: employed Travel in the last 8 weeks: None ROS Obtained: Yes All systems reviewed & no additional complaints except as documented Physical Exam General General appearance: alert Respiratory Respiratory exam: Present normal lung sounds bilaterally; Absent respiratory distress Cardiovascular Cardiovascular exam: Present regular rate; Absent tachycardia Extremities Exam Extremities exam: Present other (Left lower extremity erythema that is consistent with exam from previous visit today without any change.) Neurological Exam Neurological exam: Present alert and oriented X3 Medical Decision Making Marvin Inquiry Pt receiving controlled substance: No Medical Decision Narrative: 52-year-old here with extensive cellulitis that extends from the dorsal aspect of the lower leg through the knee and into the medial aspect of the left thigh. It really unchanged this morning. Again I am very concerned about a possible septic joint this was communicated with Dr. Li. I cannot tap this knee as there is no overlying cellulitis. Vancomycin was given earlier we have consulted pharmacy regarding ongoing vancomycin treatment. He was admitted to hospital medicine for further evaluation and treatment. No evidence of any sepsis or endorgan damage. Culture sent this morning Critical Care Time Critical Care Time Critical Care Time: No Attestation: On 05/04/23, the high probability of a clinically significant, sudden or life threatening deterioration of the following system(s) required my full and direct attention, intervention and personal management. The time I documented below is in addition to time spent performing reported procedures but includes the following listed in this critical care notation.
--- NOTE | 2023-05-04 18:16 | PC.NURSE ---
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
[2023-05-04 18:24] LABS: Coronavirus 19, PCR Not Detected (NotDetected); Influenza A, PCR Not Detected (NotDetected); Influenza B, PCR Not Detected (NotDetected)
--- NOTE | 2023-05-04 18:29 | CT_ITS ---
PROCEDURE INFORMATION: Exam: CT Left Lower Extremity With Contrast, Knee Exam date and time: 05/04/2023 6:41 PM Age: 52 years old Clinical indication: Swelling or effusion of joint; Knee; Additional info: Eval effusion; Septic joint vs cellulitis/bursitis TECHNIQUE: Imaging protocol: CT of the left lower extremity with intravenous contrast was performed. Exam focused on the knee. Total images: 407 Radiation optimization: All CT scans at this facility use at least one of these dose optimization techniques: automated exposure control; mA and/or kV adjustment per patient size (includes targeted exams where dose is matched to clinical indication); or iterative reconstruction. Contrast material: ISOVUE; Contrast volume: 120 ml; Contrast route: IV; REPORTING DATA: Count of CT and Cardiac NM exams in prior 12 months: This patient has received 0 known CTs and 0 known cardiac nuclear medicine studies in the 12 months prior to the current study. COMPARISON: CR XR KNEE LT 3V 05/04/2023 9:33 AM FINDINGS: Bones/joints: No acute fracture or joint dislocation. No concerning bone lesions. No cortical erosion or periostitis. No significant degenerative arthropathy. Minor juxta-articular sclerosis medial greater than lateral tibial plateau and femoral condyles compatible with degenerative change. Small joint effusion. No synovial enhancement to suggest septic arthritis. Soft tissues: Considerable superficial soft tissue edema encompassing the entire knee. Peripherally enhancing complex fluid collection anterior to the patella and patellar tendon, measuring up to 10 mm in AP thickness with a craniocaudal extent of 7 cm and a maximum transverse with of 3 cm. Apparent anterior skin thickening. Vasculature: Normal vascular enhancement. Other findings: No radiopaque foreign body. IMPRESSION: 1. Elliptical peripherally enhancing complex fluid collection anterior to the patella and patellar tendon. Leading differential of abscess versus infected bursitis. 2. Small joint effusion. No synovial enhancement to suggest septic arthritis. 3. Moderate superficial soft tissue edema/cellulitis. 4. No acute osseous abnormality. 5. No cortical erosion or secondary signs of osteomyelitis.
--- NOTE | 2023-05-04 18:44 | PC.NURSE ---
Called report to [facility] second floor
[2023-05-04 18:46] VITALS: BP 112/78; PULSE 97; RESP 16; TEMP 36.8; O2SAT 96
--- NOTE | 2023-05-04 18:47 | PC.NURSE ---
report called from ER.
--- NOTE | 2023-05-04 18:51 | PC.NURSE ---
Back from CT
[2023-05-04 19:30] VITALS: BP 117/72; PULSE 91; RESP 20; TEMP 38; O2SAT 98; BMI 22.6
--- NOTE | 2023-05-04 20:28 | PC.ADMIT ---
[email or web address] [place] [address] Admission Note: The patient,William Valencia,52 y/o, was given written information regarding hospital policies, unit procedures and contact persons. Patient's smoking status: Current every day smoker. Vital Signs - 8 hr 05/04/23 18:01 05/04/23 18:11 05/04/23 18:46 Temperature 98.2 F 98.2 F Pulse Rate 97 H 97 H Pulse Rate [Right] 95 H Respiratory Rate 16 16 Blood Pressure 112/78 112/78 Blood Pressure [Right Arm] 112/78 02 Sat by Pulse Oximetry 97 96 Oxygen Delivery Method Room Air Room Air
--- NOTE | 2023-05-04 20:34 | PC.NURSE ---
Pt arrived to floor via wheelchair @ 192
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
[2023-05-04 21:15] LABS: Erythrocyte Sedimentation Rate 29 mm/hr (0-20)
--- NOTE | 2023-05-04 23:28 | PC.NURSE ---
pt took as shower this evening prior to admission and refused a shower tonight. RA. last bm 05/04. meds to beds, paperwork complete. smoker 1pack/day, diminished LS. Offered to get an order for nicotine patch r/ smoking hx, but pt refused at this time. A&OX4. crutches at BS. chronic back pain. HX of falls in the last month per pt. Left leg pain red warm and tender to touch.
--- NOTE | 2023-05-04 23:40 | EXP.SEPSISRE ---
[facility] Tissue Perfusion Eval Sepsis Re-Evaluation Performed: Yes Date Performed: 05/04/23 Time Performed: 23:00
--- NOTE | 2023-05-05 03:13 | PC.NURSE ---
post picture. pt left sock removed from left foot. He stated my leg don't feel as tight
[2023-05-05 04:00] VITALS: BP 110/68; PULSE 89; RESP 18; TEMP 37.4; O2SAT 95; BMI 22.3
[2023-05-05 06:08] LABS: Basophils % 0.3 % (0.1-2.0); Eosinophils # 0.4 K/mm3 (0.0-0.4); Eosinophils % 3.5 % (0.1-12.0); Hematocrit 45.2 % (42.0-52.0); Hemoglobin 14.1 g/dL (14.1-18.0); Lymphocytes % 9.7 % (10-50); Mean Corpuscular HGB Conc 31.2 g/dL (31.8-35.4); Mean Corpuscular Hemoglobin 28.9 pg (27.0-31.2); Mean Corpuscular Volume 92.6 fl (80-94); Mean Platelet Volume 7.3 fl (7.4-10.4); Monocytes # 0.7 K/mm3 (0.1-1.0); Monocytes % 7.2 % (1.7-9.3); Neutrophils # 8.1 K/mm3 (1.8-7.8); Neutrophils % 79.3 % (37.0-80.0); Platelet Count 270 K/mm3 (142-424); Red Blood Count 4.88 M/mm3 (4.60-6.20); Red Cell Distribution Width 13.2 % (11.5-17.5); White Blood Count 10.2 K/mm3 (4.8-10.8)
[2023-05-05 06:13] LABS: Alanine Aminotransferase 26 U/L (12-78); Albumin Level 3.3 g/dl (3.5-5.0); Albumin/Globulin Ratio 1.2 (1.1-1.8); Alkaline Phosphatase 84 U/L (38-126); Anion Gap 10.1 mEq/L (5-15); Aspartate Amino Transferase 30 U/L (17-59); Bilirubin,Total 0.3 mg/dl (0.2-1.3); Blood Urea Nitrogen 9 mg/dl (9-20); Calcium 8.5 mg/dl (8.4-10.2); Carbon Dioxide 29 mmol/L (22.0-30.0); Chloride 103 mmol/L (98-107); Creatinine Clearance Estimated 115 mL/min (50-200); Estimated Glomerular Filt Rate 118 ml/min (>60); GFR (African American) 143 ML/MIN (>60); Globulin 2.8 g/dL (1.3-3.2); Glucose 121 mg/dl (74-100); Potassium 4.1 mmoL/L (3.5-5.1); Sodium 138 mmol/L (136-145); Total Protein,Serum 6.1 g/dl (6.3-8.2)
[2023-05-05 06:20] LABS: C-Reactive Protein 75.1 mg/L (0-4)
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
--- NOTE | 2023-05-05 07:42 | P.CONPHA_ITS ---
Pharmacy Consult Date: 05/05/23 Time: 07:43 Referring provider: DR HOLLOWAY Reason for Consult:: VANCOMYCIN DOSING CONSULT Allergies Allergy/AdvReac Type Severity Reaction Status Date / Time hydrocodone [HYDROCODONE] Allergy Intermediate I-ITCHING Verified 09/22/21 11:25 Penicillins [PENICILLINS] Allergy Intermediate I-HIVES Verified 09/22/21 11:25 Sulfa (Sulfonamide Allergy Mild NA-NAUSEA/V Verified 09/22/21 11:25 Antibiotics) OMITING [SULFA (SULFONAMIDE ANTIBIOTICS)] Home Medications Medication Instructions Recorded Confirmed Type No Known Home Medications 05/05/23 05/05/23 History New Prescriptions to Start Prescriptions: Height: 1.73 m Weight: 66.848 kg Laboratory Results:: Laboratory Results - last 24 hr 05/04/23 18:15: SARS-CoV-2 (PCR) Not detected, Influenza A Untype (PCR) Not detected, Influenza Type B (PCR) Not detected 05/04/23 20:40: ESR 29 H 05/05/23 05:55: WBC 10.2 D, RBC 4.88, Hgb 14.1, Hct 45.2, MCV 92.6, MCH 28.9, MCHC 31.2 L, RDW 13.2, Plt Count 270, MPV 7.3 L, Neut % (Auto) 79.3, Lymph % (Auto) 9.7 L, [place] % (Auto) 7.2, Eos % (Auto) 3.5, Baso % (Auto) 0.3, Neut # (Auto) 8.1 H, Lymph # (Auto) 1.0, [place] # (Auto) 0.7, Eos # (Auto) 0.4, Baso # (Auto) 0.0, Sodium 138, Potassium 4.1, Chloride 103, Carbon Dioxide 29, Anion Gap 10.1, BUN 9 D, Creatinine 0.70, Estimated Creat Clear 115, Estimated GFR 118, Est GFR ( Amer) 143, Glucose 121 H, Calcium 8.5, Magnesium 2.0, Total Bilirubin 0.3, AST 30 D, ALT 26, Alkaline Phosphatase 84, C-Reactive Protein 75.1 H D, Total Protein 6.1 L, Albumin 3.3 L D, Globulin 2.8, Albumin/Globulin Ratio 1.2 Assessment and Plan Assessment and plan all Dx Assessment and Plan for all problems:: Pharmacokinetic dosing service Objective: Age: 52 yo Serum creatinine: 0.7 mg/dL Height: 68.1 Inches Weight (kg): 66.848 Diagnosis: CELLULITIS Assessment: IBW (kg): 68.63 Dosing wt(kg): 66.848 Estimated Creatinine clearance (ml/min): 115.4 CRCL method: Cockcroft and Gault using ibw(default). Drug selected: Vancomycin Vd (liters): 46.8 (factor used: 0.7 L/kg) Jacob (hr-1): 0.100 Half life (hrs): 6.93 CLvanco=?? 4.680 L/hr Recommended dose: 1250 mg Interval: 12 hrs Infusion time (hrs): 2.0 Predicted peak (mcg/mL): 34.6 Predicted trough (mcg/mL): 12.73 Total body weight is being used for vancomycin dosing. Recommendations: Give Vancomycin 1250 mg q 12 hrs with an expected Cpeak of 34.6 mcg/ml and an expected Ctrough of 12.73 mcg/ml AUC 0-24 /NAVJOT Data: NAVJOT 0.5 mcg/mL:?? AUC/NAVJOT:? 1068.4 NAVJOT 1.0 mcg/mL:?? AUC/NAVJOT:? 534.2 --------- NAVJOT 1.5 mcg/mL:?? AUC/NAVJOT:? 356.1 NAVJOT 2.0 mcg/mL:?? AUC/NAVJOT:? 267.1 Thank you for the consult
--- NOTE | 2023-05-05 07:56 | EXP.ACUTE.PN ---
Subjective *Date: 05/05/23 *Time: 09:29 Interval history: Seeing improvement in red this. Receding from leading edge. No fevers overnight. Pain intermittent. Quite tender with palpation of patella. Stable on room air. No other complaints of the pain at this time. Medical Exam Vital signs and Labs for Last 24 Hours: Vital Signs Temp Pulse Pulse Resp BP BP Pulse Ox 05/05/23 04:00 99.3 F 89 18 110/68 95 05/05/23 03:00 05/05/23 06:25 05/05/23 04:48 05/05/23 00:53 05/04/23 20:00 05/04/23 23:00 05/04/23 21:00 05/04/23 19:30 100.4 F H 91 H 20 117/72 98 05/04/23 18:46 98.2 F 97 H 16 112/78 05/04/23 18:11 97 H 112/78 96 05/04/23 18:01 98.2 F 95 H 16 112/78 97 O2 Del Method 05/05/23 04:00 Room Air 05/05/23 03:00 Room Air 05/05/23 06:25 Room Air 05/05/23 04:48 Room Air 05/05/23 00:53 Room Air 05/04/23 20:00 Room Air 05/04/23 23:00 Room Air 05/04/23 21:00 Room Air 05/04/23 19:30 Room Air 05/04/23 18:46 Room Air 05/04/23 18:11 05/04/23 18:01 Room Air Intake and Output 05/04/23 05/04/23 05/05/23 15:59 23:59 07:59 Intake Total 661 / 661 Output Total 0 / 0 0 / 0 Balance 0 / 661 661 / 661 Intake: Intake, Oral Amount 360 / 360 Intake, Other Amount 40 / 40 Intake, Total IV Amount 261 / 261 Vancomycin/Water For Inj (Peg) 261 / 261 1.25 gm In 250 ml @ 125 mls/hr IV Q12H [facility] Rx#:[id number] Output: Output, Urine Amount 0 / 0 0 / 0 Other: Intake, Other Source Saline Solution Number of Unmeasured Voids 1 1 Weight 67.67 kg 66.848 kg Patient Weight 05/05/23 23:59 Weight 66.848 kg Laboratory Results - last 24 hr 05/04/23 18:15: SARS-CoV-2 (PCR) Not detected, Influenza A Untype (PCR) Not detected, Influenza Type B (PCR) Not detected 05/04/23 20:40: ESR 29 H 05/05/23 05:55: WBC 10.2 D, RBC 4.88, Hgb 14.1, Hct 45.2, MCV 92.6, MCH 28.9, MCHC 31.2 L, RDW 13.2, Plt Count 270, MPV 7.3 L, Neut % (Auto) 79.3, Lymph % (Auto) 9.7 L, [place] % (Auto) 7.2, Eos % (Auto) 3.5, Baso % (Auto) 0.3, Neut # (Auto) 8.1 H, Lymph # (Auto) 1.0, [place] # (Auto) 0.7, Eos # (Auto) 0.4, Baso # (Auto) 0.0, Sodium 138, Potassium 4.1, Chloride 103, Carbon Dioxide 29, Anion Gap 10.1, BUN 9 D, Creatinine 0.70, Estimated Creat Clear 115, Estimated GFR 118, Est GFR ( Amer) 143, Glucose 121 H, Calcium 8.5, Magnesium 2.0, Total Bilirubin 0.3, AST 30 D, ALT 26, Alkaline Phosphatase 84, C-Reactive Protein 75.1 H D, Total Protein 6.1 L, Albumin 3.3 L D, Globulin 2.8, Albumin/Globulin Ratio 1.2 I & O for Labs for Last 24 Hours: Intake & Output 05/02/23 05/03/23 05/04/23 05/05/23 23:59 23:59 23:59 23:59 Intake Total 661 / 661 Output Total 0 / 0 0 / 0 Balance 0 1 661 / 661 Weight 67.67 kg 66.848 kg Constitutional: Present no acute distress and average body habitus Head: Present atraumatic and normocephalic ENT: Present normal exam Neck: Present normal inspection Respiratory: Present normal respiratory effort; Absent rhonchi, wheezes or crackles Cardiac: Present Reg Rate and Rhythm GI: Present normal bowel sounds; Absent tenderness Comment:: Left leg with redness from knee distal. Receding from leading edge that was marked last night. Swelling superficial to patella. Quite tender on exam Skin: Present intact and erythema Neuro: Present Grossly Intact, alert, awake, oriented x 3 and moves all extremities Assessment and Plan *Assessment and plan (1) Sepsis: Status: Acute Qualifiers: Sepsis type: sepsis due to unspecified organism Sepsis acute organ dysfunction status: without acute organ dysfunction Qualified Code(s): A41.9 - Sepsis, unspecified organism Category: Medical Code(s): A41.9 - Sepsis, unspecified organism (2) Cellulitis of left leg: Status: Acute Category: Medical Code(s): L03.116 - Cellulitis of left lower
[2023-05-05 08:00] VITALS: BP 115/81; PULSE 74; RESP 16; TEMP 36.7; O2SAT 98
--- NOTE | 2023-05-05 08:50 | PC.NURSE ---
COURTESY TECH NOTE; ROUNDED ON PT 0750, PT DENIED NEED FOR DRINK, ASSISTANCE WITH RESTROOM, AND NEED TO REPOSITION IN BED. CALL LIGHT WITHIN REACH, NO FURTHER REQUESTS AT THIS TIME LENIN ARNOLD
--- NOTE | 2023-05-05 15:18 | PC.NURSE ---
CHECKED ON PT MULTIPLE TIMES, PT HAS RESTED MAJORITY OF THE DAY. PT STATED HE HAS NO NEEDS AT THIS TIME.
[2023-05-05 16:00] VITALS: BP 109/79; PULSE 81; RESP 16; TEMP 36.9; O2SAT 98
--- NOTE | 2023-05-05 18:27 | PC.NURSE ---
Patient receiving antibiotics throughout day, states a decrease in discomfort.
--- NOTE | 2023-05-05 19:54 | PC.NURSE ---
pt in shower
[2023-05-05 20:00] VITALS: BP 129/73; PULSE 78; RESP 17; TEMP 36.6; O2SAT 98
[2023-05-06 04:00] VITALS: BP 122/77; PULSE 68; RESP 16; TEMP 36.9; O2SAT 95; BMI 23.1
--- NOTE | 2023-05-06 06:14 | PC.NURSE ---
lab called, going to do morning labs with vanc trough at 0800 this AM
[2023-05-06 07:28] VITALS: BP 133/76; PULSE 70; RESP 18; TEMP 36.9; O2SAT 97
[2023-05-06 08:20] LABS: Basophils % 0.4 % (0.1-2.0); Eosinophils # 0.3 K/mm3 (0.0-0.4); Eosinophils % 4.4 % (0.1-12.0); Hematocrit 42.6 % (42.0-52.0); Hemoglobin 13.5 g/dL (14.1-18.0); Lymphocytes # 0.8 K/mm3 (0.7-4.5); Lymphocytes % 11.3 % (10-50); Mean Corpuscular HGB Conc 31.8 g/dL (31.8-35.4); Mean Corpuscular Hemoglobin 29.2 pg (27.0-31.2); Mean Platelet Volume 7.3 fl (7.4-10.4); Monocytes # 0.7 K/mm3 (0.1-1.0); Monocytes % 8.7 % (1.7-9.3); Neutrophils # 5.6 K/mm3 (1.8-7.8); Neutrophils % 75.2 % (37.0-80.0); Platelet Count 286 K/mm3 (142-424); Red Blood Count 4.63 M/mm3 (4.60-6.20); White Blood Count 7.4 K/mm3 (4.8-10.8)
[2023-05-06 08:27] LABS: Alanine Aminotransferase 28 U/L (12-78); Albumin/Globulin Ratio 1.2 (1.1-1.8); Alkaline Phosphatase 83 U/L (38-126); Anion Gap 12.3 mEq/L (5-15); Aspartate Amino Transferase 28 U/L (17-59); Bilirubin,Total 0.2 mg/dl (0.2-1.3); Blood Urea Nitrogen 12 mg/dl (9-20); Calcium 8.5 mg/dl (8.4-10.2); Carbon Dioxide 27 mmol/L (22.0-30.0); Chloride 104 mmol/L (98-107); Creatinine Clearance Estimated 104 mL/min (50-200); Estimated Glomerular Filt Rate 101 ml/min (>60); GFR (African American) 122 ML/MIN (>60); Globulin 2.6 g/dL (1.3-3.2); Glucose 110 mg/dl (74-100); Magnesium 1.8 mg/dl (1.6-2.3); Potassium 4.3 mmoL/L (3.5-5.1); Sodium 139 mmol/L (136-145); Total Protein,Serum 5.6 g/dl (6.3-8.2)
[2023-05-06 08:32] LABS: C-Reactive Protein 43.1 mg/L (0-4)
[2023-05-06 09:05] LABS: Vancomycin,Trough 9.4 ug/mL (5.0-10.0)
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
[2023-05-06 09:27] LABS: Erythrocyte Sedimentation Rate 59 mm/hr (0-20)
--- NOTE | 2023-05-08 12:58 | CARE MANAGER ---
Patient does not have a working phone number when trying to call to follow up on discharge.
== END 2023-05-06 13:38 | disposition home or self-care (01) ==
LOC: ER 18:14 → 2ND 19:43
PROVIDERS: Admitting Provider Internal Medicine Adolescent Medicine; Emergency Provider Student in an Organized Health Care Education/Training Program; PCP Emergency Medicine; Visit Provider Internal Medicine Adolescent Medicine
DX: L03.116 Cellulitis of left lower limb (principal); F17.210 Nicotine dependence, cigarettes, uncomplicated; M70.42 Prepatellar bursitis, left knee; V19.9XXA Pedal cyclist (driver) (passenger) injured in unspecified traffic accident, initial encounter
CPT/HCPCS: 36415; 73701; 80053; 80202; 83735; 85025; 85651; 86140; 87636; 99285; G0378; Q9967

== ENCOUNTER 2023-10-05 15:24 | Emergency (ER) | payer OTHER, SELFPAY ==
[2023-10-05 15:26] VITALS: BP 124/77; PULSE 84; RESP 18; TEMP 36.7; O2SAT 97; BMI 22.8
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
--- NOTE | 2023-10-05 15:33 | XR_ITS ---
PROCEDURE INFORMATION: Exam: XR Right Hand Exam date and time: 10/05/2023 3:41 PM Age: 52 years old Clinical indication: Injury or trauma; Other: Log splitter; Blunt trauma (contusions or hematomas); Wrist; Right; Additional info: Blunt injury on thurs TECHNIQUE: Imaging protocol: Radiologic exam of the right hand. Views: 3 or more views. COMPARISON: CR XR FOREARM RT 2V 10/05/2023 3:41 PM FINDINGS: Bones/joints: No visible fracture or dislocation. Soft tissues: Normal. IMPRESSION: No visible fracture or dislocation.
--- NOTE | 2023-10-05 15:35 | HMH.EDGENADL ---
Discharge Plan Disposition Patient Disposition: Home, Self-Care Prescriptions Prescriptions: No Action linezolid 600 mg tablet 600 mg PO BID 8 Days Qty: 15 0RF Rx Instructions: start evening of 05/06/23 Referrals Follow up/Referrals: Adriana Cohen PA [Primary Care Provider] - See instructions Hair Reyes DO [Staff Physician] - See instructions Activity Restrictions/Add. Instructions Additional Instructions/Restrictions: No evidence of any fracture or dislocation if you continue to have significant pain in this area I would recommend that you follow-up with our orthopedic surgeon for an outpatient evaluation of morning's imaging such as a CT scan or an MRI. Clinical Impressions Clinical Impression: Contusion of right wrist Discharge ED Provider: Shannan Casas General Adult HPI General Chief complaint: Extremity Injury, Upper Stated complaint: AO11/ RT wrist inj Time Seen by Provider: 10/05/23 15:29 History of Present Illness HPI narrative: Patient is a 52-year-old man who had a blunt injury to the distal aspect of his right forearm wrist and hand last and is having continuing pain. Denies any significant swelling difficulty with movement or sensation changes. Does have a history of a tendon repair in the same arm. Denies any other medical problems. Related Data Previous Rx's Medication Instructions Recorded linezolid 600 mg tablet 600 mg PO BID 8 days #15 tabs 05/06/23 Allergies Allergy/AdvReac Type Severity Reaction Status Date / Time hydrocodone [HYDROCODONE] Allergy Intermediate I-ITCHING Verified 05/23/23 10:39 Penicillins [PENICILLINS] Allergy Intermediate I-HIVES Verified 05/23/23 10:39 Sulfa (Sulfonamide Allergy Mild NA-NAUSEA/V Verified 05/23/23 10:39 Antibiotics) OMITING [SULFA (SULFONAMIDE ANTIBIOTICS)] [facility] Disclaimer: The information contained in this section may have been updated after the patient was seen, as this information can be updated by other users. Medical History No significant past medical history Pyelonephritis Renal abscess Renal cyst Family History Other No significant family history Social History Smoking Status: Current every day smoker alcohol intake: current current occupational status: employed Travel in the last 8 weeks: None ROS Obtained: Yes All systems reviewed & no additional complaints except as documented Physical Exam General General appearance: alert Respiratory Respiratory exam: Absent respiratory distress Cardiovascular Cardiovascular exam: Present regular rate Extremities Exam Extremities exam: Present other (Right upper extremity there is tenderness palpation over the distal radius and hand on the dorsal aspect, no significant soft tissue swelling, no deformity he is neurovascular intact has normal motor function sensory function capillary refill) Neurological Exam Neurological exam: Present alert and oriented X3 Medical Decision Making Marvin Inquiry Pt receiving controlled substance: No Vital Signs: 10/05/23 15:26 Temperature 98.1 F Temperature Source Oral Pulse Rate [Right Radial] 84 Respiratory Rate 18 Blood Pressure [Right Arm] 124/77 Blood Pressure Mean [Right Arm] 92 02 Sat by Pulse Oximetry 97 Oxygen Delivery Method Room Air Orders (Tests/Meds): ED MEDICATIONS Discontinued Medications Generic Name Dose Route Start Last Admin Trade Name Freq PRN Reason Stop Dose Admin Acetaminophen 1,000 mg 10/05/23 15:37 10/05/23 15:54 Acetaminophen 500mg Tab PO 10/05/23 15:38 1,000 mg ONCE ONE Administration Ibuprofen 800 mg 10/05/23 15:37 10/05/23 15:54 Ibuprofen 400 Mg Tablet PO 10/05/23 15:38 800 mg ONCE ONE Administration ORDERS Category Date Time Status
[2023-10-05 16:00] VITALS: BP 128/75; PULSE 80; RESP 18; TEMP 36.7; O2SAT 99
--- NOTE | 2023-10-09 07:45 | PC.NURSE ---
access pt chart to complete ortho paper
== END 2023-10-05 16:00 | disposition home or self-care (01) ==
PROVIDERS: Emergency Provider Student in an Organized Health Care Education/Training Program; PCP Physician Assistant
DX: S60.211A Contusion of right wrist, initial encounter (principal); F17.200 Nicotine dependence, unspecified, uncomplicated; X58.XXXA Exposure to other specified factors, initial encounter
CPT/HCPCS: 73090; 73110; 73130; 99284

== ENCOUNTER 2025-06-17 13:45 | Emergency (ER) | payer OTHER, SELFPAY ==
[2025-06-17 13:52] VITALS: BP 128/81; PULSE 77; RESP 16; TEMP 36.6; O2SAT 98; BMI 23.4
--- NOTE | 2025-06-17 14:03 | ED_ITS ---
<Statement entered by Moris Harry DO - 06/17/25 19:28> I was consulted by the SIRIA, and we discussed the complexity of problems being addressed. I approved the treatment and management plan for this patient's care in the emergency department, thus performing a substantive portion of the medical decision making. Moris Harry DO Discharge Plan Disposition Patient Disposition: Home, Self-Care Prescriptions Prescriptions: New permethrin 5 % cream 1 applic topical Q14D Qty: 60 0RF Rx Instructions: apply second treatment 14 days after first treatment apply from neck down, leave on for 8-10 hours then wash off. wash all bedding as well clindamycin HCl [Cleocin HCl] 300 mg capsule 300 mg PO BID 7 Days Qty: 14 0RF hydroxyzine HCl 25 mg tablet 25 mg PO Q8H PRN (Reason: itching) Qty: 30 0RF No Action linezolid 600 mg tablet 600 mg PO BID 8 Days Qty: 15 0RF Rx Instructions: start evening of 05/06/23 Referrals Follow up/Referrals: Provider,Referral, MD [Primary Care Provider, Medical] - See instructions Activity Restrictions/Add. Instructions Additional Instructions/Restrictions: Use medication as directed. Please follow-up with your primary care provider for further treatment and management. Clinical Impressions Clinical Impression: Cellulitis, Insect bites Instructions Patient Instructions: Cellulitis, DI for Insect Bites and Stings Print Language Print Language: Croatian Discharge ED Provider: Moris Harry General Adult HPI General Chief complaint: Skin/Abscess/Foreign Body Stated complaint: bug bites all over body Time Seen by Provider: 06/17/25 13:50 Mode of Arrival: Ambulatory Source of Information: Patient Description of Symptoms (Recalled from ER Triage Doc. by RN): Patient states he was cleaning out a garage room and thinks he was bitten by some bugs. Patient with red, itchy red spots on arms and legs. States they have been there about 3 days. History of Present Illness HPI narrative: 54-year-old male presents to the ED today for what appears like scabs all over his body. He says bugs are coming out of these bug bites if he squeezed them. He tells me he has been squeezing all of his bites/scabs and bugs have been coming out of them. He says he has an infestation. No fevers or chills. No na usea, vomiting or diarrhea. No other symptoms. Related Data Previous Rx's ?Medication ?Instructions ?Recorded linezolid 600 mg tablet 600 mg PO BID 8 days #15 tab s 05/06/23 clindamycin HCl 300 mg capsule 300 mg PO BID 7 days #1 4 caps 06/17/25 (Cleocin HCl) hydroxyzine HCl 25 mg tablet 25 mg PO Q8H PRN itching #30 tabs 06/17/25 permethrin 5 % topical cream 1 applic topical Q14D 2 d oses #60 06/17/25 grams Allergies Allergy/AdvReac Type Severity Reaction Status Date / Time hydrocodone (HYDROCODONE) Allergy Intermediate I-ITCHING Verified 05/23/23 10:39 Penicillins (PENICILLINS) Allergy Intermediate I-HIVES Verified 05/23/23 10:39 Sulfa (Sulfonamide Allergy Mild NA-NAUSEA/V Verified 05/23/23 10:39 Antibiotics) (SULFA OMITING (SULFONAMIDE ANTIBIOTICS)) [facility] Disclaimer: The information contained in this section may have been updated after the patient was seen, as this information can be updated by other users. Medical History No significant past medical history Pyelonephritis Renal abscess Renal cyst Family History Other No significant family history Social History Smoking Status: Current every day smoker alcohol intake: current alcohol intake frequency: 3 or more drinks per day current occupational status: employed Travel in the last 8 weeks?: None Have you lived/traveled outside US in past 30 days?: No Contact w/someone who lives/traveled outside US past 30 days?: No Exposure to someone with infectious disease in past 14 days?: No Do you have a fever (greater than 100.4 F or 38 C)?: No Have you tested positive for COVID-19?: No Exposed to someone with COVID-19 in past 14 days?: No Do you have a sore throat?: No Do you have a cough?: No Do you have any weakness?: No Do you have any diarrhea?: No Are you experiencing any unusual bleeding?: No Do you have any muscle aches/pain?: No Do you have any abdominal pain?: No Are you experiencing loss of taste or smell?: No Other Medical History Have you received the Flu Vaccine for this season: No Have you received the Pneumonia Vaccine: No ROS Obtained: Yes Systems reviewed as appropriate & no additional complaints except as documented Constitutional Constitutional: Reports as per HPI Physical Exam General General appearance: alert and anxious Head Head exam: normocephalic Eye Eye exam: Present PERRL and EOMI ENT ENT exam: Present normal oropharynx and mucous membranes moist Neck Neck exam: Present full ROM and trachea midline Respiratory Respiratory exam: Present normal lung sounds bilaterally Cardiovascular Cardiovascular exam: Present regular rate, normal rhythm, normal heart sounds, +S1 and +S2 Extremities Exam Extremities exam: Present full ROM and normal capillary refill Neurological Exam Neurological exam: Present alert and oriented X3 Psychiatric Psychiatric exam: Present anxious Skin Skin exam: Present warm, dry, rash and erythema (Scabs scattered over body many of these have erythema around them, many scabs are open) Medical Decision Making Medical Records Screening: Per USPSTF and CDC recommendations, given the prevalence of disease in our region, it is our hospital?s policy to screen for HIV and viral Hepatitis for all patients aged 18 and over and those with ongoing risk factors. Marvin Inquiry Pt receiving controlled substance: No Marvin was queried for this patient: No Vital Signs: 06/17/25 13:52 06/17/25 14:43 Temperature 98 F 98.1 F Temperature Source Oral Oral Pulse Rate 79 Pulse Rate [Left Brachial] 77 Respiratory Rate 16 16 Blood Pressure 126/59 L Blood Pressure [Left Arm] 128/81 Blood Pressure Mean [Left Arm] 96 Blood Pressure Source Automatic Cuff Blood Pressure Source [Left Arm] Automatic Cuff Blood Pressure Position Sitting Blood Pressure Position [Left Arm] Sitting 02 Sat by Pulse Oximetry 98 Oxygen Delivery Method Room Air Room Air Medical Decision Narrative: patient is a 54-year-old male presenting to the emergency department for evaluation of scabs over her body, erythema around scabs. Patient is hemodynamically stable and nontoxic-appearing upon arrival, afebrile. Differential diagnosis includes scabies, rash, dermatitis, among others. Workup not needed as this is a rash and appears to need treatment for scabies and infection as a couple of the areas look infected. Patient shows no systemic symptoms of infection.. Will give patient antibiotics and permethrin to treat scabies. Patient needs to follow-up with his PCP. Patient safe for discharge Critical Care Critical Care Time Critical Care Time: No
--- OUTSIDE RECORDS SUMMARY | 2025-06-17 14:03 | XMS_ITS | Clinical Summary ---
Author Organization [facility] Phone Care Team Providers Care Instructor Psychiatric Aide Name Role Phone Unavailable Unavailable Conditions or Problems No information available. Medications No information available. Medications Administered No information available. Allergies, Adverse Reactions, Alerts No information available. Results No information available. Plan of Care No information available. Procedures No information available. Vital Signs No information available. Immunizations No information available. Advance Directives No information available.
--- OUTSIDE RECORDS SUMMARY | 2025-06-17 14:03 | XMS_ITS | Clinical Summary ---
Author Organization [employer] [facility] Address [address] [place] [id number] Phone Care Team Providers Care Retail Pharmacy Technician Name Role Phone Robert Huang DMD [phone] Conditions or Problems Problem Name Problem Code Onset Date Status Entry Date Provider Comment Standard Description Annotate PERIAPICAL ABSCESS WITHOUT SINUS [id number] (SNOMED CT) Inactive Robert Huang DMD Periapical abscess without sinus tract Medications Medication Instructions Start Date Stop Date Generic Name NDC Provider IBUPROFEN 600 MG TABS TAKE 1 TABLET EVERY 6 HOURS NEEDED FOR PAIN 2 IBUPROFEN [id number] Robert Huang DMD CLINDAMYCIN HCL 150 MG CAPS TAKE 2 CAPSULES EVERY 6 HOURS 2 CLINDAMYCIN HCL [id number] Robert Huang TAMEKA Medications Administered No information available. Allergies, Adverse Reactions, Alerts No information available. Results No information available. Plan of Care No information available. Procedures No information available. Vital Signs No information available. Immunizations No information available. Advance Directives No information available.
--- OUTSIDE RECORDS SUMMARY | 2025-06-17 14:04 | XMS_ITS | Clinical Summary ---
Author Organization [facility] Address [address] [place] [address] Phone Care Team Providers Care Restaurant Inspector Name Role Phone Unavailable Primary Care Provider Unavailabl e Allergies Active Allergy Reactions Criticality Noted Date Comments Penicillins Swelling 03/28/2010 Medications CYANOCOBALAMIN, VITAMIN B-12, (VITAMIN B-12 ORAL) Take by mouth daily. Active potassium chloride (K-DUR) 10 mEq tablet Take by mouth 2 times daily. Active hydrocodone-acet aminophen (VICODIN) 5-500 mg per tablet Take by mouth. 1-2 pills every 4-6 hours as needed for pain 12 Tab 0 06/10/2011 Active Surgical History Surgery Date Site/Laterality Comments FINGER AMPUTATION left index ORTHOPEDIC SURGERY right arm Medical History Medical History Date Comments Neck pain Laceration right arm- cut t endon Vertebral injury Asthma Social History Tobacco Use Types Packs/Day Years Used Date Smoking Tobacco: Every Day Cigarettes Smokeless Tobacco: Never Alcohol Use Standard Drinks/Week Comments Yes 0 (1 standard drink = 0.6 oz pur e alcohol) occ Sex and Gender Information Value Date Recorded Sex Assigned at Not on file Legal Sex Male 11:39 AM EDT Gender Identity Not on file Sexual Orientation Not on file Obstetrics History Last Filed Vital Signs Vital Sign Reading Time Taken Comments Blood Pressure 96/66 07/29/2011 1:20 PM EDT Pulse 74 07/29/2011 1:20 PM EDT Temperature 36.9 C (98.5 F) 07/29/2011 11:24 AM EDT Respiratory Rate 20 07/29/2011 1:20 PM EDT Oxygen Saturation 99% 07/29/2011 1:20 PM EDT Inhaled Oxygen Concentration - - Weight 68.9 kg (152 lb) 06/10/2011 1:09 PM EDT Height 175.3 cm (5' 9 ) 06/10/2011 1:09 PM EDT Body Mass Index 22.45 06/10/2011 1:09 PM EDT Plan of Treatment Health Maintenance Due Date Last Done Comments Annual Wellness Exam 1972 DTaP/TDaP/Td (1 - Tdap) 1988 Hepatitis B Vaccine (1 of 3 - 19+ 3-dose series) 1988 Cologuard 2014 Colon Cancer Screening 2014 Colonoscopy 2014 FIT 2014 Sigmoidoscopy 2014 Virtual Colonography 2014 Pneumococcal Vaccine 50+ (1 of 1 - PCV) 2019 Zoster (1 of 2) 2019 COVID-19 Vaccine (1 - 2023-2 5 season) 2024 Influenza Vaccine (#1) 2025 Meningococcal B Vaccine Aged Out No l onger eligible based on patient's age to complete this topic Insurance [employer]
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
[2025-06-17 14:43] VITALS: BP 126/59; PULSE 79; RESP 16; TEMP 36.7; O2SAT 98
== END 2025-06-17 14:45 | disposition home or self-care (01) ==
PROVIDERS: Emergency Provider Student in an Organized Health Care Education/Training Program
DX: B86 Scabies (principal); L03.90 Cellulitis, unspecified
CPT/HCPCS: 99282; 99283

== ENCOUNTER 2025-07-06 10:21 | Emergency (ER) | payer OTHER, SELFPAY ==
--- NOTE | 2025-07-06 10:26 | ED_ITS ---
Discharge Plan Disposition Patient Disposition: Home, Self-Care Condition: Fair Prescriptions Prescriptions: New bacitracin 500 unit/gram ointment 1 applic topical BID Qty: 14 0RF No Action permethrin 5 % cream 1 applic topical Q14D Qty: 120 0RF Rx Instructions: apply second treatment 14 days after first treatment apply from neck down, leave on for 8-10 hours then wash off. wash all bedding as well clindamycin HCl [Cleocin HCl] 300 mg capsule 300 mg PO BID 7 Days Qty: 14 0RF hydroxyzine HCl 25 mg tablet 25 mg PO Q8H PRN (Reason: itching) Qty: 30 0RF linezolid 600 mg tablet 600 mg PO BID 8 Days Qty: 15 0RF Rx Instructions: start evening of 05/06/23 Referrals Follow up/Referrals: Carole Mercedes APRN [Nurse Practitioner, Behavioral Health] - See instructions Clarence Watson MD [Primary Care Provider, Family Practice] - See instructions Activity Restrictions/Add. Instructions Additional Instructions/Restrictions: Stop picking at your skin. Cleanse areas with soap and water and keep them clean and dry. Apply bacitracin ointment to prevent infection on areas that are scabbed over. Return if you develop fevers or pus drainage from these wounds. Follow-up with psychiatry, call Carole Mercedes to make an appointment. Please follow up with your primary care provider in 2-3 days. Please return to ED if your symptoms worsen, change in location, change in severity, new symptoms develop or if you become concerned for your health. Clinical Impressions Clinical Impression: Delusions of parasitosis, Excoriation (skin-picking) disorder Instructions Patient Instructions: DI for Skin Abscess Print Language Print Language: Turkish Discharge ED Provider: German Archibald General Adult HPI General Chief complaint: Skin/Abscess/Foreign Body Stated complaint: poss insect bites , parasites Time Seen by Provider: 07/06/25 10:26 History of Present Illness HPI narrative: Patient is a 54-year-old male with no significant past medical history. He presents today for concerns for parasites under his skin. Per my review of the EMR, he was seen here on June 16 and was diagnosed with scabies at that time as well as cellulitis and given permethrin cream, clindamycin. He reports that this has not helped his severe case of scabies . He reports that he has never experienced this before, has noticed it worsening all over his body. Reports that the cream and the antibiotics did not help. He denies any other medical history including psychiatric issues. Denies any history of drug use. Denying any drainage or fevers at home. He continues to report that the bugs are laying eggs underneath my skin everywhere and there are flies with horns on them that bite me and come out as well . Related Data Previous Rx's ?Medication ?Instructions ?Recorded linezolid 600 mg tablet 600 mg PO BID 8 days #15 tab s 05/06/23 clindamycin HCl 300 mg capsule 300 mg PO BID 7 days #1 4 caps 06/17/25 (Cleocin HCl) hydroxyzine HCl 25 mg tablet 25 mg PO Q8H PRN itching #30 tabs 06/17/25 permethrin 5 % topical cream 1 applic topical Q14D 2 d oses #120 07/05/25 grams bacitracin 500 unit/gram topical 1 applic topical BID #14 grams 07/06/25 ointment Allergies Allergy/AdvReac Type Severity Reaction Status Date / Time hydrocodone (HYDROCODONE) Allergy Intermediate I-ITCHING Verified 05/23/23 10:39 Penicillins (PENICILLINS) Allergy Intermediate I-HIVES Verified 05/23/23 10:39 Sulfa (Sulfonamide Allergy Mild NA-NAUSEA/V Verified 05/23/23 10:39 Antibiotics) (SULFA OMITING (SULFONAMIDE ANTIBIOTICS)) [facility] Disclaimer: The information contained in this section may have been updated after the patient was seen, as this information can be updated by other users. Medical History No significant past medical history Pyelonephritis Renal abscess Renal cyst Family History Other No significant family history Social History Smoking Status: Current every day smoker alcohol intake: current alcohol intake frequency: 3 or more drinks per day current occupational status: employed Travel in the last 8 weeks?: None Have you lived/traveled outside US in past 30 days?: No Contact w/someone who lives/traveled outside US past 30 days?: No Exposure to someone with infectious disease in past 14 days?: No Do you have a fever (greater than 100.4 F or 38 C)?: No Have you tested positive for COVID-19?: No Exposed to someone with COVID-19 in past 14 days?: No Do you have a sore throat?: No Do you have a cough?: No Do you have any weakness?: No Do you have any diarrhea?: No Are you experiencing any unusual bleeding?: No Do you have any muscle aches/pain?: No Do you have any abdominal pain?: No Are you experiencing loss of taste or smell?: No Other Medical History Have you received the Flu Vaccine for this season: No Have you received the Pneumonia Vaccine: No ROS Obtained: Yes All systems reviewed & no additional complaints except as documented Physical Exam General General appearance: alert and in no apparent distress Head Head exam: atraumatic and normocephalic Eye Eye exam: Present PERRL and EOMI ENT ENT exam: Present normal oropharynx Neck Neck exam: Present full ROM and trachea midline Chest Chest inspection: Present symmetric chest wall rise Respiratory Respiratory exam: Present normal lung sounds bilaterally; Absent stridor Cardiovascular Cardiovascular exam: Present regular rate and normal rhythm Abdominal Exam Abdominal exam: Present soft; Absent distention or tenderness Extremities Exam Extremities exam: Present full ROM Neurological Exam Neurological exam: Present alert and oriented X3 Psychiatric Psychiatric exam: Present normal mood Skin Skin exam: Present warm, dry and other (Excoriations over the bilateral forearms and bilateral forelegs including on the dorsum of the feet that are well eschar over with no significant erythema or induration extending beyond the margins of the wounds. No drainage. No pattern of the wounds that would be suggestive of parasite under the ) Medical Decision Making Medical Records Screening: Per USPSTF and CDC recommendations, given the prevalence of disease in [facility], it is our hospital?s policy to screen for HIV and viral Hepatitis for all patients aged 18 and over and those with ongoing risk factors. Marvin Inquiry Pt receiving controlled substance: No Vital Signs: 07/06/25 10:31 07/06/25 10:35 Temperature 98.1 F Temperature Source Oral Pulse Rate 68 Pulse Rate [Left Radial] 76 Respiratory Rate 20 Blood Pressure 131/95 H Blood Pressure [Right Arm] 131/95 H Blood Pressure Mean [Right Arm] 107 02 Sat by Pulse Oximetry 97 97 Oxygen Delivery Method Room Air Medical Decision Narrative: Patient is a 54-year-old male with no medical history presenting today with concerns of parasites under his skin. Reports that he has been to multiple urgent cares and was also seen here on 16 June per my review the EMR was sent home with permethrin cream and clindamycin for superficial infection cellulitis and scabies. I have less concern for scabies clinically. The pattern of his hands or feet. Additionally, he has had multiple other family members who live in the house and none have exhibited the symptoms. There are skin excoriations all the way up his arms and on his legs, and a distribution that would not be suggestive of parasites, scabies, contact irritant dermatitis, or otherwise. No overlying signs of infection today on my exam. Patient denies any drug use, including meth. Skin excoriations does not fit scabies or parasite pattern. 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 I have spoken with patient at length and did a lot of counseling about my thoughts on this and I have given him referral to psychiatry to further discuss as well as follow-up with his family medicine provider. He is encouraged to stop the picking so as to avoid superimposed infection in the future. Critical Care Critical Care Time Critical Care Time: No
[2025-07-06 10:31] VITALS: BP 131/95; PULSE 68; O2SAT 97
--- OUTSIDE RECORDS SUMMARY | 2025-07-06 10:33 | XMS_ITS | Clinical Summary ---
Author Organization [facility] Address [address] [place] [id number] Phone Care Team Providers Care Model Maker Firearms Name Role Phone Robert Huang DMD [phone] Conditions or Problems Problem Name Problem Code Onset Date Status Entry Date Provider Comment Standard Description Annotate PERIAPICAL ABSCESS WITHOUT SINUS [id number] (SNOMED CT) Inactive Robert Huang DMD Periapical abscess without sinus tract Medications Medication Instructions Start Date Stop Date Generic Name NDC Provider IBUPROFEN 600 MG TABS TAKE 1 TABLET EVERY 6 HOURS NEEDED FOR PAIN 2 IBUPROFEN [id number] Robert Huang DMD CLINDAMYCIN HCL 150 MG CAPS TAKE 2 CAPSULES EVERY 6 HOURS 2 CLINDAMYCIN HCL [id number] Robert Huang TAMEKA Medications Administered No information available. Allergies, Adverse Reactions, Alerts No information available. Results No information available. Plan of Care No information available. Procedures No information available. Vital Signs No information available. Immunizations No information available. Advance Directives No information available.
--- OUTSIDE RECORDS SUMMARY | 2025-07-06 10:33 | XMS_ITS | Clinical Summary ---
Author Organization [facility] Phone Care Team Providers Care Student Support Advisor Name Role Phone Unavailable Unavailable Conditions or Problems No information available. Medications No information available. Medications Administered No information available. Allergies, Adverse Reactions, Alerts No information available. Results No information available. Plan of Care No information available. Procedures No information available. Vital Signs No information available. Immunizations No information available. Advance Directives No information available.
--- OUTSIDE RECORDS SUMMARY | 2025-07-06 10:34 | XMS_ITS | Clinical Summary ---
Author Organization [facility] Address [address] [place] [address] Phone Care Team Providers Care Pilot Plant Supervisor Name Role Phone Unavailable Primary Care Provider [...] COVID-19 Vaccine (1 - 2023-2 5 season) 2025 Influenza Vaccine (#1) 2025 Meningococcal B Vaccine Aged Out No l onger eligible based on patient's age to complete this topic Insurance [employer]
--- OUTSIDE RECORDS SUMMARY | 2025-07-06 10:34 | XMS_ITS | Clinical Summary ---
Author Organization Health Address [address] [place] [address] Care Team Providers Care Coastal And Estuary Specialist Name Role Phone Mani Shaffer MD Primary Care Provider [phone] Source Comments This information has been disclosed [...] therelease of HIV test results or diagnoses. 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
[2025-07-06 10:35] VITALS: BP 131/95; PULSE 76; RESP 20; TEMP 36.7; O2SAT 97; BMI 23.3
[2025-07-06 11:57] VITALS: BP 150/70; PULSE 80; RESP 20; TEMP 36.7; O2SAT 98
== END 2025-07-06 11:58 | disposition home or self-care (01) ==
PROVIDERS: Emergency Provider Emergency Medicine; PCP Family Medicine
DX: F42.4 Excoriation (skin-picking) disorder (principal); F22 Delusional disorders; F17.200 Nicotine dependence, unspecified, uncomplicated
CPT/HCPCS: 99283

== ENCOUNTER 2025-08-06 16:33 | Outpatient (CLI) | payer OTHER, SELFPAY ==
[2025-08-06 19:39] LABS: Hematocrit 44.3 % (42.0-52.0); Hemoglobin 14.6 g/dL (14.1-18.0); Immature Granulocytes % 0.3 %; Mean Corpuscular HGB Conc 33.0 g/dL (31.8-35.4); Mean Corpuscular Hemoglobin 29.0 pg (27.0-31.2); Mean Corpuscular Volume 88.1 fl (80-94); Nucleated Red Blood Cells % 0 %; Platelet Count 257 K/mm3 (142-424); Red Blood Count 5.03 M/mm3 (4.60-6.20); Red Cell Distribution Width-SD 39.8 fL; White Blood Count 7.5 K/mm3 (4.8-10.8)
[2025-08-06 21:08] LABS: Alanine Aminotransferase 19 U/L (12-78); Albumin Level 4.0 g/dl (3.5-5.0); Albumin/Globulin Ratio 1.7 (1.1-1.8); Alkaline Phosphatase 91 U/L (38-126); Anion Gap 13.4 mEq/L (5-15); Aspartate Amino Transferase 26 U/L (17-59); Bilirubin,Total 0.9 mg/dl (0.2-1.3); Blood Urea Nitrogen 11 mg/dl (9-20); Calcium 9.6 mg/dl (8.4-10.2); Carbon Dioxide 29 mmol/L (22.0-30.0); Chloride 99 mmol/L (98-107); Creatinine,Serum 0.90 mg/dl (0.66-1.25); Estimated Glomerular Filt Rate 88 ml/min (>60); GFR (African American) 106 ML/MIN (>60); Globulin 2.3 g/dL (1.3-3.2); Glucose 82 mg/dl (74-100); Potassium 4.4 mmoL/L (3.5-5.1); Sodium 137 mmol/L (136-145); Total Protein,Serum 6.3 g/dl (6.3-8.2)
[2025-08-06 21:18] LABS: C-Reactive Protein 4.4 mg/L (0-4)
--- OUTSIDE RECORDS SUMMARY | 2025-08-08 00:51 | XMS_ITS | Clinical Summary ---
Author Organization [facility] Address [address] [place] [id number] Phone Care Team Providers Care Insecticide Expert Name Role Phone Robert Huang DMD [phone] Conditions or Problems Problem Name Problem Code Onset Date Status Entry Date Provider Comment Standard Description Annotate PERIAPICAL ABSCESS WITHOUT SINUS [id number] (SNOMED CT) Inactive Robert Huang DMD Periapical abscess without sinus tract Medications Medication Instructions Start Date Stop Date Generic Name NDC Provider IBUPROFEN 600 MG TABS TAKE 1 TABLET EVERY 6 HOURS NEEDED FOR PAIN 2 IBUPROFEN [id number] Robert Huang DMD CLINDAMYCIN HCL 150 MG CAPS TAKE 2 CAPSULES EVERY 6 HOURS 2 CLINDAMYCIN HCL [id number] Robert Huang DMD Medications Administered No information available. Allergies, Adverse Reactions, Alerts No information available. Results No information available. Plan of Care No information available. Procedures No information available. Vital Signs No information available. Immunizations No information available. Advance Directives No information available.
--- OUTSIDE RECORDS SUMMARY | 2025-08-08 00:51 | XMS_ITS | Clinical Summary ---
Author Organization Health Address [address] [place] [address] Care Team Providers Care Superintendent Pressure Name Role Phone Mani Shaffer MD Primary Care Provider [phone] Source Comments This information has been disclosed [...] therelease of HIV test results or diagnoses. 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
== END 2025-08-06 23:59 ==
LOC: LAB.DROPOF 08-08 00:50
PROVIDERS: PCP Student in an Organized Health Care Education/Training Program; Visit Provider Student in an Organized Health Care Education/Training Program
DX: F22 Delusional disorders (principal); F42.4 Excoriation (skin-picking) disorder; B86 Scabies; Z79.899 Other long term (current) drug therapy; T14.8XXA Other injury of unspecified body region, initial encounter; W57.XXXA Bitten or stung by nonvenomous insect and other nonvenomous arthropods, initial encounter
CPT/HCPCS: 80053; 85025; 86140